=== PATIENT | female | born 1995 | race Caucasian/White ===

== ENCOUNTER 2017-11-20 11:16 | Emergency (ER) | payer MEDICAID ==
[~2017-11-20] VITALS: Ht 167.6 cm; Wt 67.5 kg
[2017-11-20 11:19] VITALS: BP 115/78
== END 2017-11-20 15:17 | disposition home or self-care (01) ==
LOC: ED 15:14
DX: S62.022A Displaced fracture of middle third of navicular [scaphoid] bone of left wrist, initial encounter for closed fracture (principal); B02.9 Zoster without complications; V00.131A Fall from skateboard, initial encounter; Y93.51 Activity, roller skating (inline) and skateboarding; Y92.89 Other specified places as the place of occurrence of the external cause; Y99.8 Other external cause status
CPT/HCPCS: 29125; 99284

== ENCOUNTER 2017-12-05 12:09 | Day surgery (SDC) | payer MEDICAID ==
[~2017-12-05] VITALS: Ht 167.6 cm; Wt 64.9 kg
[2017-12-05] MEDS ORDERED: LACTATED RINGERS 1,000 ML IV SCH (12:21)
[2017-12-05] MEDS ORDERED: BUPIVACAINE 0.25% ONE (12:28)
[2017-12-05] MEDS ORDERED: SCOPOLAMINE PATCH, 1.5MG PATCH.TD72 TD ONE (12:30)
[2017-12-05] MEDS ORDERED: ONDANSETRON ODT 8 MG PO ONE (12:30)
[2017-12-05] MEDS ORDERED: ACETAMINOPHEN 500 MG TABLET PO ONE (12:30)
[2017-12-05] MEDS ORDERED: OxyconTIN ER 20 MG TAB.ER PO ONE (12:30)
[2017-12-05] MEDS ORDERED: GABAPENTIN 300 MG CAPSULE PO ONE (12:30)
[2017-12-05 12:40] VITALS: BP 111/71
[2017-12-05] MEDS ORDERED: HYDR-3237 PO (12:40)
[2017-12-05] MEDS ORDERED: MIDAZOLAM 1 MG/ML, 2ML ONE (12:56)
[2017-12-05] MEDS ORDERED: FENTANYL PF 250 MCG/5ML ONE (12:56)
[2017-12-05] MEDS ORDERED: PROPOFOL 10 MG/ML, 20ML ONE (12:57)
[2017-12-05] MEDS ORDERED: ROCURONIUM 10MG/ML,5ML ONE (12:57)
[2017-12-05] MEDS ORDERED: GLYCOPYRROLATE 0.4 MG/2 ML, 2ML ONE (12:58)
[2017-12-05] MEDS ORDERED: NEOSTIGMINE 1 MG/ML, 10ML ONE (12:58)
[2017-12-05] MEDS ORDERED: CEFAZOLIN 1,000 MG ONE ×2 (12:59)
[2017-12-05] MEDS ORDERED: WATER-INJECTION,STERILE 10 ML IV ONE (12:59)
[2017-12-05] MEDS ORDERED: DEXAMETHASONE 4 MG/ML, 1ML ONE ×2 (12:59)
[2017-12-05 13:23] LABS: HCG UR SG 1.026 (1.003-1.030)
[2017-12-05] MEDS ORDERED: PROMETHAZINE 25 MG/ML, 1ML IV PRN (13:30)
[2017-12-05] MEDS ORDERED: hydrALAzine 20 MG/ML, 1ML IV PRN (13:30)
[2017-12-05] MEDS ORDERED: OXYcodone 5 MG/5 ML ORAL.SOL UDC PO PRN (13:30)
[2017-12-05] MEDS ORDERED: FENTANYL PF 100 MCG/2ML IV PRN (13:30)
[2017-12-05] MEDS ORDERED: LABETALOL 5MG/ML, 20ML IV PRN (13:30)
[2017-12-05] MEDS ORDERED: PROMETHAZINE 25 MG SUPP PR PRN (13:30)
[2017-12-05] MEDS ORDERED: ONDANSETRON ODT 8 MG PO PRN (13:30)
[2017-12-05] MEDS ORDERED: HYDROmorphone 1 MG/ML, 1ML IV PRN (13:30)
[2017-12-05] MEDS ORDERED: MORPHINE SULFATE 4 MG/ML, 1ML IVPush PRN (13:30)
[2017-12-05] MEDS ORDERED: PROMETHAZINE 12.5 MG SUPP PR PRN (13:30)
[2017-12-05] MEDS ORDERED: BUPIVACAINE/PF 0.25% INFIL ONE (14:16)
[2017-12-05] MEDS ORDERED: MEPERIDINE/PF 50 MG/ML ONE (14:59)
[2017-12-05] MEDS: MEPERIDINE/PF 25MG/0.5ML IVPush PRN ×2 (15:03→15:16)
[2017-12-05] MEDS ORDERED: OXYcodone 5 MG/5 ML ORAL.SOL UDC ONE (15:06)
[2017-12-05] MEDS ORDERED: PROMETHAZINE 25 MG/ML, 1ML ONE (15:17)
== END 2017-12-05 17:55 | disposition home or self-care (01) ==
LOC: OUT 12:09
PROVIDERS: ATTEND Orthopaedic Surgery
DX: S62.002A Unspecified fracture of navicular [scaphoid] bone of left wrist, initial encounter for closed fracture (principal); W19.XXXA Unspecified fall, initial encounter; Y93.89 Activity, other specified; Y92.89 Other specified places as the place of occurrence of the external cause; Y99.8 Other external cause status; Z88.8 Allergy status to other drugs, medicaments and biological substances
CPT/HCPCS: 25628; 73100; 76000; 81025; C1713; J0690; J1100; J2175; J2250; J2550; J2704; J2710; J3010; J3490; J7120; Q0162

== ENCOUNTER 2018-05-14 13:01 | Emergency (ER) | payer MEDICAID ==
[~2018-05-14] VITALS: Ht 167.6 cm; Wt 63.8 kg
[~2018-05-14 13:01] MED LIST: HYDR-3237 PO
[2018-05-14] MEDS ORDERED: ONDANSETRON ODT 4 MG PO ONE (13:30)
[2018-05-14 13:45] VITALS: BP 104/66
[2018-05-14] MEDS ORDERED: ONDANSETRON ODT 4 MG ONE (13:46)
[2018-05-14] MEDS ORDERED: vitamin D PO (13:48)
[2018-05-14] MEDS ORDERED: MULT-516 PO (13:48)
[2018-05-14 14:33] LABS: HCG UR SG 1.018 (1.003-1.030)
== END 2018-05-14 14:46 | disposition left against medical advice (07) ==
LOC: ED 13:27
DX: R11.0 Nausea (principal); Z86.19 Personal history of other infectious and parasitic diseases
CPT/HCPCS: 81025; 99283; Q0162

== ENCOUNTER 2018-07-09 15:16 | Emergency (ER) | payer SELFPAY ==
[~2018-07-09] VITALS: Ht 167.6 cm; Wt 64.0 kg
[~2018-07-09 15:16] MED LIST changes: +MULT-516 PO; +vitamin D PO
[2018-07-09 15:26] VITALS: BP 118/61
== END 2018-07-09 16:02 | disposition home or self-care (01) ==
LOC: ED 16:00
DX: L20.9 Atopic dermatitis, unspecified (principal)
CPT/HCPCS: 99281

== ENCOUNTER 2018-10-12 10:09 | Emergency (ER) | payer MEDICAID ==
[~2018-10-12] VITALS: Ht 167.6 cm; Wt 62.0 kg
--- NOTE | 2018-10-12 10:45 | NUR ---
PA AT BEDSIDE PERFORMING PELVIC EXAM WITH VAGINAL SAMPLES OBTAINED.
[2018-10-12] MEDS ORDERED: LORazepam 1MG TABLET PO ONE (11:00)
--- NOTE | 2018-10-12 11:01 | NUR ---
PT TEARY. PT STATES SHE DOES NOT HAVE A RIDE, SO NO ATIVAN GIVEN AT THIS TIME. AMBULATED TO BATHROOM TO GIVE URINE SAMPLE
[2018-10-12 11:09] LABS: CLUE CELLS NONE SEEN (NONE SEEN); WET PREP WBCS FEW (FEW)
[2018-10-12 11:43] LABS: HCG UR SG 1.034 (1.003-1.030)
[2018-10-12 11:44] LABS: CULTURE INDICATED? YES; MICROSCOPIC INDICATED
--- NOTE | 2018-10-12 11:58 | NUR ---
SITTING IN CHAIR IN ROOM AWAITING DISPO
[2018-10-12 12:17] VITALS: BP 118/64
== END 2018-10-12 12:35 | disposition home or self-care (01) ==
LOC: ED 11:03
DX: N30.00 Acute cystitis without hematuria (principal); A60.04 Herpesviral vulvovaginitis
CPT/HCPCS: 81001; 81025; 87086; 87210; 87491; 87591; 87808; 99283

== ENCOUNTER 2019-06-07 18:42 | Emergency (ER) | payer SELFPAY ==
[~2019-06-07] VITALS: Ht 167.6 cm; Wt 65.1 kg
[2019-06-07 19:18] VITALS: BP 114/68
--- NOTE | 2019-06-07 19:21 | NUR ---
PT TO LOBBY, WAIT TIME EXPLAINED.
--- NOTE | 2019-06-07 19:55 | NUR ---
PT. AMBULATORY TO ED20 FROM [facility] AT THIS TIME. PT. C/O RIGHT UPPER EYELID SWELLING. REPORTS HAS HAD AN ABSCESS FROM A SPIDER BITE IN THE PAST AND WAS CONCERNED THIS MAY BE AN ABSCESS TOO. MILD REDNESS SWELLING NOTED TO RIGHT EYE. PT. DENIES PAIN AT THIS TIME. AWAITING PROVIDER EVAL.
== END 2019-06-07 20:42 | disposition home or self-care (01) ==
LOC: ED 20:35
DX: H44.001 Unspecified purulent endophthalmitis, right eye (principal); L03.213 Periorbital cellulitis; Z87.891 Personal history of nicotine dependence
CPT/HCPCS: 99283

== ENCOUNTER 2019-09-27 14:53 | Emergency (ER) | payer SELFPAY ==
[~2019-09-27] VITALS: Ht 167.6 cm; Wt 70.4 kg
[2019-09-27 15:22] LABS: BASOPHILS # (AUTO) 0.03 x10^3/uL (0-0.1); BASOPHILS % (AUTO) 0 % (0-1); EOSINOPHILS # (AUTO) 0.08 x10^3/uL (0-0.4); EOSINOPHILS % (AUTO) 1 % (1-7); LYMPHOCYTES # (AUTO) 1.87 x10^3/uL (1-3.4); LYMPHOCYTES % (AUTO) 19 % (22-44); MD NO; MEAN CORPUSCULAR HEMOGLOBIN 30.9 pg (27.0-34.8); MEAN CORPUSCULAR HGB CONC 33.1 g/dL (32.4-35.8); MEAN CORPUSCULAR VOLUME 93.3 fL (80-100); MEAN PLATELET VOLUME 7.6 fL (7.4-10.4); MONOCYTES # (AUTO) 0.64 x10^3/uL (0.2-0.8); MONOCYTES % (AUTO) 7 % (2-9); NEUTROPHILS # (AUTO) 7.03 x10^3/uL (1.8-6.8); NEUTROPHILS % (AUTO) 73 % (42-75); PLATELET COUNT 238 x10^3/uL (130-400); RED BLOOD COUNT 4.39 x10^6/uL (3.82-5.3); RED CELL DISTRIBUTION WIDTH 13.6 % (9.6-15.2)
--- NOTE | 2019-09-27 15:30 | NUR ---
assumed care of pt. pt pesents c/o intermittent abd pain. + . pt is . denies vaginal bleeding. no back pain. no urinary sx. no other c/o at this time. no family at bedside.
[2019-09-27 15:31] LABS: ALANINE AMINOTRANSFERASE 21 U/L (12-78); ALBUMIN 4.2 g/dL (3.4-5.0); ANION GAP 5 mmol/L (5-15); CHLORIDE 108 mmol/L (98-107); CREATININE 0.65 mg/dL (0.55-1.02)
--- NOTE | 2019-09-27 15:40 | NUR ---
urine sample collected and sent
--- NOTE | 2019-09-27 15:45 | NUR ---
pt to US via josh
[2019-09-27 15:49] LABS: ALKALINE PHOSPHATASE 45 U/L (45-117); BILIRUBIN,TOTAL 0.2 mg/dL (0.2-1.0); TOTAL PROTEIN 7.4 g/dL (6.4-8.2)
[2019-09-27 16:00] LABS: MICROSCOPIC NOT IND
[2019-09-27 16:05] LABS: CULTURE INDICATED? NO
--- NOTE | 2019-09-27 16:36 | NUR ---
this pt was D/C by another RN
[2019-09-27 16:39] VITALS: BP 110/63
== END 2019-09-27 16:41 | disposition home or self-care (01) ==
LOC: ED 15:24
DX: O26.891 Other specified pregnancy related conditions, first trimester (principal); R10.2 Pelvic and perineal pain; Z3A.13 13 weeks gestation of pregnancy
CPT/HCPCS: 36415; 76830; 80053; 81003; 84702; 85025; 99284

== ENCOUNTER 2020-10-08 11:43 | Emergency (ER) | payer MEDICAID ==
[~2020-10-08] VITALS: Ht 167.6 cm; Wt 83.2 kg
--- NOTE | 2020-10-08 11:58 | NUR ---
PT WITH C/O R EYE PAIN AND SWELLING FOR TWO WEEKS. "I THINK I HAVE AN INFECTION" NO DISCHARGE NOTED. PT STATES HAS SOME BLURRED VISION IN RIGHT EYE. PT SITTING UP IN CHAIR. VSJoao. JEWELS. AWAITING ORDERS.
[2020-10-08 12:42] VITALS: BP 114/76
--- NOTE | 2020-10-08 12:43 | NUR ---
Patient/Caregiver given discharge instructions and they have confirmed that they understand the instructions. Patient ambulatory with steady gait.
== END 2020-10-08 12:44 | disposition home or self-care (01) ==
LOC: ED 12:01
DX: H04.321 Acute dacryocystitis of right lacrimal passage (principal)
CPT/HCPCS: 99283

== ENCOUNTER 2021-01-21 18:35 | Emergency (ER) | payer MEDICAID ==
[~2021-01-21] VITALS: Ht 167.6 cm; Wt 78.7 kg
--- NOTE | 2021-01-21 20:25 | NUR ---
PT AMBULATORY TO ROOM 27 W/ C/O R WRIST PAIN AND SWELLING AFTER PT STATES SHE WAS SKATING AND FELL DOWN. PT STATES PAIN IS INCREASED AND DECIDED TO COME TO ED. PT RESTING ON GURNEY. MOTTA
--- NOTE | 2021-01-21 20:50 | NUR ---
TASK rn: Patient given discharge instructions and they have confirmed that they understand the instructions. Patient ambulatory with steady gait.
[2021-01-21 20:51] VITALS: BP 108/68
== END 2021-01-21 20:53 | disposition home or self-care (01) ==
LOC: ED 20:47
DX: S63.501A Unspecified sprain of right wrist, initial encounter (principal); M65.4 Radial styloid tenosynovitis [de Quervain]; Z87.891 Personal history of nicotine dependence; W18.30XA Fall on same level, unspecified, initial encounter; Y93.89 Activity, other specified; Y92.89 Other specified places as the place of occurrence of the external cause; Y99.8 Other external cause status
CPT/HCPCS: 29125; 99283